=== PATIENT | female | born 1970 | race Caucasian/White ===

== ENCOUNTER → 2017-02-20 | Outpatient (CLI) | payer MEDICAID ==
--- NOTE | 2017-02-22 07:09 | MM ---
Reason for exam: screening (asymptomatic). Last mammogram was performed 11 years and 10 months ago. History: Family history of breast cancer in aunt. Took hormonal contraceptives for 2 years. Physical Findings: A clinical breast exam by your physician is recommended on an annual basis and results should be correlated with mammographic findings. MG 3D Screening Mammo W/Cad Bilateral CC and MLO view(s) were taken. Prior study comparison: April 11, 2005, CAD bilateral diagnostic mammogram. The breast tissue is heterogeneously dense. This may lower the sensitivity of mammography. Finding: There are typically benign coarse heterogeneous, diffuse calcifications. A more focal group of four calcifications medial right CC view. ASSESSMENT: Benign, BI-RAD 2 RECOMMENDATION: Routine screening mammogram of both breasts in 1 year.
== END | disposition home or self-care (01) ==
LOC: RADMAMWWP 07:49
PROVIDERS: ATTEND Obstetrics & Gynecology
DX: Z12.31 Encounter for screening mammogram for malignant neoplasm of breast (principal)
CPT/HCPCS: 77063; G0202

== ENCOUNTER → 2018-09-26 | Outpatient (CLI) | payer MEDICAID ==
--- NOTE | 2018-09-27 08:53 | MM ---
Reason for exam: screening (asymptomatic). Last mammogram was performed 1 year and 7 months ago. History: Family history of breast cancer in aunt. Took hormonal contraceptives for 2 years. Physical Findings: A clinical breast exam by your physician is recommended on an annual basis and results should be correlated with mammographic findings. MG 3D Screening Mammo W/Cad Bilateral CC and MLO view(s) were taken. Prior study comparison: February 20, 2017, bilateral MG 3d screening mammo w/cad. April 11, 2005, CAD bilateral diagnostic mammogram. The breast tissue is heterogeneously dense. This may lower the sensitivity of mammography. There is no discrete abnormality. No significant changes when compared with prior studies. ASSESSMENT: Negative, BI-RAD 1 RECOMMENDATION: Routine screening mammogram of both breasts in 1 year.
== END | disposition home or self-care (01) ==
LOC: RADMAMWWP 07:07
PROVIDERS: ATTEND Obstetrics & Gynecology
DX: Z12.31 Encounter for screening mammogram for malignant neoplasm of breast (principal)
CPT/HCPCS: 77063; 77067

== ENCOUNTER → 2021-08-03 | Outpatient (CLI) | payer MEDICAID ==
--- NOTE | 2021-08-03 10:15 | US ---
EXAMINATION TYPE: US pelvic complete DATE OF EXAM: 08/03/2021 COMPARISON: NONE CLINICAL HISTORY: N96.2 IRREGULAR MENSTRUATION, UNSPECIFIED. Irregular menstruation heavy long menses for the past year TECHNIQUE: Transabdominal (TA). Transabdominal sonographic images of the pelvis were acquired. Date of LMP: Unknown EXAM MEASUREMENTS: Uterus: 9.8 x 5.7 x 5.8 cm Endometrial Stripe: 0.8 cm Right Ovary: 2.6 x1.9 x 1.5 cm Left Ovary: 2.6 x 1.9 x 1.6 cm 1. Uterus: Anteverted Appears large and bulky. 2. Endometrium: 0.8cm LMP unknown 3. Right Ovary: wnl 4. Left Ovary: wnl 5. Bilateral Adnexa: wnl 6. Posterior cul-de-sac: wnl Uterus appear large and bulky. Suboptimal study as only transabdominal imaging is performed. Heterogeneous enlarged bulky uterus sug gesting underlying fibroids. Endometrial stripe abnormally thickened if patient is postmenopausal. No free fluid in pelvic cul-de-sac. Both ovaries seen and are symmetric somewhat small in size. No suspicious adnexal masses. IMPRESSION: Probable fibroid uterus. Advise further investigation with transvaginal ultrasound if pat ient is postmenopausal. Correlate clinically.
[2021-08-03 14:08] LABS: HCT 34.9 % (37.2-46.3); HGB 10.4 g/dL (12.0-15.0); MCH 24.8 pg (27.0-32.0); MCHC 29.8 g/dL (32.0-37.0); MCV 83.3 fL (80.0-97.0); Mean Platelet Volume 11.3 fL (9.5-12.2); NRBC Per 100 WBC 0 /100 WBCS (0.0-0.0); Platelet Count 427 X 10*3/uL (140-440); RBC 4.19 X 10*6/uL (4.10-5.20); RDW 14.8 % (11.5-14.5); WBC 5.45 X 10*3/uL (4.50-10.00)
[2021-08-03 14:55] LABS: ALT 21 U/L (8-44); AST 23 U/L (13-35); African American GFR (CKD) 89.7 (60.0-200.0); Albumin 4.6 g/dL (3.8-4.9); Albumin/Globulin Ratio 1.88 (1.60-3.17); Alkaline Phosphatase 60 U/L (41-126); BUN/Creat Ratio 16.38 Ratio (12.00-20.00); Blood Urea Nitrogen 14.3 mg/dL (9.0-27.0); Carbon Dioxide 17.6 mmol/L (20.0-27.5); Chloride 104 mmol/L (96-109); Globulin 2.5 g/dL (1.6-3.3); Glucose 84 mg/dL (70-110); LDL Cholesterol,Calculated 96.7 mg/dL (0.0-131.0); Non-African American GFR(CKD) 77.4 (60.0-200.0); Potassium 4.2 mmol/L (3.5-5.5); Sodium 135 mmol/L (135-145); Total Protein 7.1 g/dL (6.2-8.2); VLDL Calculation 11.38 mg/dL (5.00-40.00)
== END | disposition home or self-care (01) ==
LOC: RADUSWWP 08:53
PROVIDERS: ATTEND Obstetrics & Gynecology
DX: Z13.220 Encounter for screening for lipoid disorders (principal); Z13.29 Encounter for screening for other suspected endocrine disorder; Z13.1 Encounter for screening for diabetes mellitus; R53.83 Other fatigue; D64.9 Anemia, unspecified; N92.6 Irregular menstruation, unspecified
CPT/HCPCS: 76856; 80053; 80061; 84439; 84443; 85027

== ENCOUNTER 2021-08-12 07:11 | Day surgery (SDC) | payer MEDICAID ==
--- NOTE | 2021-08-12 07:26 | P.HPOB ---
History of Present Illness H&P Date: 08/12/21 Chief Complaint: Menorrhagia with irregular cycle, blood loss anemia This is a 51-year-old female 1 para 1 who presents with a history of irregular and heavy menses since January 2021. She has been bleeding almost constantly since July 2020 but the bleeding would vary from spotting for a few days to heavy flow. She did have a pelvic ultrasound in the office that showed a uterus measuring 9.8 x 5.7 x 5.8 cm with an endometrial thickness of 0.8 cm however radiologist did mention that the uterus appears large and bulky with possible underlying fibroids. Both ovaries appeared normal. She started on Provera to help slow her bleeding on July 27 and has been taking daily since then. She initially noticed some slowing of her bleeding but then it picked up very heavy again to where she was bleeding through her clothes 3 times a night. She has been very weak, dizzy, and short of breath. She is unable to even drive herself. She has requested definitive surgical treatment to control her bleeding problem. Obstetrical history: . History of 1 delivery. Gynecologic history: History of 1 abnormal Pap smear in 2013 with atypical squamous cells of undetermined significance and high-risk HBV negative. Irregular menses as described above. Social history: She is . 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 Review of Systems Constitutional: Reports fatigue, Reports lethargy, Reports night sweats, Reports weight gain Eyes: denies blurred vision, denies pain Ears, nose, mouth and throat: Reports headache, Denies sore throat Cardiovascular: Reports dyspnea on exertion, Reports shortness of breath, Denies chest pain Respiratory: Denies cough Gastrointestinal: Denies abdominal pain, Denies diarrhea, Denies nausea, Denies vomiting Genitourinary: Reports dysmenorrhea, Reports menorrhagia Menstruation: Reports menses 8 or > days, Reports period heavy Musculoskeletal: Reports low back pain Integumentary: Denies pruritus, Denies rash Neurological: Reports weakness, Denies numbness Psychiatric: Denies anxiety, Denies depression Past Medical History Past Medical History: No Reported History Past Surgical History: Section Additional Past Surgical History / Comment(s): Bunionectomy Past Psychological History: No Psychological Hx Reported Smoking Status: Never smoker Past Alcohol Use History: Occasional Past Drug Use History: None Reported - Past Family History Mother Family Medical History: Cancer (Lungs) Medications and Allergies Home Medications Medication Instructions Recorded Confirmed Type Medroxyprogesterone Acetate 10 mg PO DAILY 08/12/21 08/12/21 History [Provera] Allergies Allergy/AdvReac Type Severity Reaction Status Date / Time No Known Allergies Allergy Verified 08/12/21 06:53 Exam Osteopathic Statement: *. No significant issues noted on an osteopathic structural exam other than those noted in the History and Physical/Consult. Intake and Output 08/11/21 08/12/21 08/12/21 22:59 06:59 14:59 Other: Weight 0 g Gen.: Well-developed well-nourished female in mild distress due to fatigue HEENT: Within normal limits Heart: Regular rate and rhythm Lungs: Clear to auscultation bilaterally Abdomen: Soft, nontender Pelvic exam: Uterus is mildly tender with first-degree uterine prolapse and a large amount of vaginal bleeding, no adnexal masses are palpated the tenderness is noted bilaterally. Extremities: Negative Homans Assessment and Plan (1) Menorrhagia with irregular cycle Current Visit: Yes Status: Acute Code(s): N92.1 - EXCESSIVE AND FREQUENT MENSTRUATION WITH IRREGULAR CYCLE SNOMED Code(s): 450350630 (2) Acute blood loss anemia Current Visit: Yes Status: Acute Code(s): D62 - ACUTE POSTHEMORRHAGIC ANEMIA SNOMED Code(s): 828826268 Plan: Plan is to proceed with dilation and curettage with hysteroscopy and NovaSure endometrial ablation. I have discussed the risks, benefits, and alternative therapies for the above- mentioned procedure and for both sedation/anesthesia as well as necessary blood products administration, if indicated, as they pertain to this patient. The patient has indicated her understanding and acceptance of the risks and procedures discussed.
[2021-08-12] MEDS ORDERED: LACTATED RINGERS 1,000 ML IV ONE (07:58)
[2021-08-12] MEDS ORDERED: ONDANSETRON 4 MG/2 ML VIAL ONE (08:01)
[2021-08-12 08:03] LABS: Anisocytosis Slight; Basophils % (A) 0 %; Eosinophils # (A) 0.1 k/uL (0-0.7); Eosinophils % (A) 3 %; HCT 25.4 % (34.0-46.0); HGB 7.9 gm/dL (11.4-16.0); Hypochromasia Marked; Lymphocytes # (A) 1.2 k/uL (1.0-4.8); Lymphocytes % (A) 25 %; MCH 26.1 pg (25.0-35.0); MCHC 31.2 g/dL (31.0-37.0); MCV 83.7 fL (80.0-100.0); Mean Platelet Volume 8.3; Monocytes # (A) 0.2 k/uL (0-1.0); Monocytes % (A) 4 %; Neutrophils # (A) 3.1 k/uL (1.3-7.7); Neutrophils % (A) 64 %; Platelet Count 396 k/uL (150-450); Poikilocytosis Slight; RBC 3.04 m/uL (3.80-5.40); RDW 16.4 % (11.5-15.5); WBC 4.8 k/uL (3.8-10.6)
[2021-08-12] MEDS ORDERED: DEXAMETHASONE SOD PHOSPHATE 4 MG/ML 1 ML VIAL IVP ONE (08:05)
[2021-08-12] MEDS ORDERED: SCOPOLAMINE 1 MG/72 HR PATCH TRANSDERM ONE (08:05)
[2021-08-12] MEDS ORDERED: MIDAZOLAM 2 MG/2 ML VIAL IVP ONE (08:31)
[2021-08-12] MEDS ORDERED: fentaNYL (PF) 50 MCG/ML 2 ML AMP ONE (09:10)
[2021-08-12] MEDS ORDERED: KETOROLAC 15 MG/ML 1 ML VIAL ONE (09:10)
[2021-08-12] MEDS ORDERED: LIDOCAINE 1% INJ 10MG/ML (20 ML MDV) ONE (09:10)
[2021-08-12] MEDS ORDERED: PROPOFOL 10 MG/ML 20 ML VIAL IV ONE (09:10)
--- NOTE | 2021-08-12 09:42 | P.OP ---
Date of Procedure: 08/12/21 Preoperative Diagnosis: Menorrhagia with irregular cycle Blood loss anemia Postoperative Diagnosis: Same Procedure(s) Performed: Dilation and curettage with hysteroscopy and NovaSure endometrial ablation Anesthesia: MYESHA Surgeon: Echo Green Estimated Blood Loss (ml): 10 Pathology: none sent Condition: stable Disposition: same day Indications for Procedure: This is a 51-year-old female 1 para 1 who presents with a history of irregular and heavy menses since January 2021. She has been bleeding almost constantly since July 2020 but the bleeding would vary from spotting for a few days to heavy flow. She did have a pelvic ultrasound in the office that showed a uterus measuring 9.8 x 5.7 x 5.8 cm with an endometrial thickness of 0.8 cm however radiologist did mention that the uterus appears large and bulky with possible underlying fibroids. Both ovaries appeared normal. She started on Provera to help slow her bleeding on July 27 and has been taking daily since then. She initially noticed some slowing of her bleeding but then it picked up very heavy again to where she was bleeding through her clothes 3 times a night. She has been very weak, dizzy, and short of breath. She is unable to even drive herself. She has requested definitive surgical treatment to control her bleeding problem. Operative Findings: Uterus is mid position, sounded to 10-1/2 cm. Cervix is sounded to 3 cm. Uterus is palpated slightly bulky and mid to retroverted position area no adnexal masses are palpated. There is grade 2 cystocele and grade 1-2 uterine prolapse noted. Upon hysteroscopy, a dyssynchronous endometrial pattern is noted with some shedding. A minimal amount of uterine curettings are obtained. Both tubal ostia are visualized. Description of Procedure: The patient is taken to the operating room. She is placed in the dorsal lithotomy position after general anesthesia was given. She is prepped and draped in the normal sterile fashion. Bladder is drained with a catheter and then removed. Pelvic exam is performed under anesthesia. Uterus is found to be mid to retroverted position with no adnexal masses. She is placed in slight Trendelenburg position. A right angle retractor is used to visualize the cervix. The anterior lip of the cervix is grasped with a Allis clamp. Cervix is sounded to 3 cm. Uterus is sounded to 10.5 cm. Cervix is gently dilated with Liang dilators until a hysteroscope could be passed. Hysteroscopy is performed using normal saline. The above noted findings are noted. Next a polyp forceps is introduced. And a minimal amount of tissue was obtained. Next medium-sized size sharp curette was placed. A minimal to moderate amount of endometrial curettings were obtained. Next NovaSure array was inserted into the endometrial cavity. Length was set at 6.5 cm and width was determined to be 4.6 cm. Next cavity assessment was completed and passed on the first try. Next NovaSure array was fired at 164 W for 49 seconds. Next the array was removed, inspected and then discarded. Next the hysteroscope was reinserted. Uniform charring was noted. Pictures were taken. Hysteroscope was removed. Allis clamp was removed from the anterior lip of the cervix. Minimal bleeding was noted. All other instruments removed from the vagina. Sponge counts were correct. Patient is taken to recovery room in stable condition.
[2021-08-12] MEDS ORDERED: HYDROmorphone 0.5 MG/0.5 ML SYRINGE IVP ONE ×3 (09:54→10:12)
[2021-08-12 10:01] VITALS: RESP 16; TEMP 97.1
[2021-08-12 11:28] VITALS: BP 111/70; PULSE 44
== END 2021-08-12 12:28 | disposition home or self-care (01) ==
LOC: OR 07:11
PROVIDERS: ATTEND Obstetrics & Gynecology
DX: N92.0 Excessive and frequent menstruation with regular cycle (principal); D50.0 Iron deficiency anemia secondary to blood loss (chronic); M35.9 Systemic involvement of connective tissue, unspecified
CPT/HCPCS: 58563; 81025; 86900; 86901; 88305; 85025; 86850; J2250; J1100; J2405; J2001; J3010; J1885; J2704; J1170